=== PATIENT | female | born 1990 | race Caucasian/White ===

== ENCOUNTER 2022-02-20 01:42 | Emergency (ER) | payer OTHER ==
[~2022-02-20] VITALS: Ht 160 cm; Wt 54.4 kg
--- NOTE | 2022-02-20 01:45 | NUR ---
[id number]. L CHEST PAIN X 1.5 HRS. "FEELS LIKE SOMETHING IS STUCK" REPORTS BETTER WHEN IN STARTED. NON RADIAITING. 2 SPRAYS NITRO 325MG ASA WITH SOME RELIEF. PT A/OX4. TOLERATING R/A WELL WITH NO RESP DISTRESS. SAFETY MEASURES IN PLACE.
--- NOTE | 2022-02-20 02:05 | NUR ---
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
[2022-02-20 03:10] VITALS: BP 105/71
--- NOTE | 2022-02-20 03:11 | NUR ---
Patient discharged to home in stable condition. Written and verbal after care instructions given. Patient verbalizes understanding of instruction. IV removed. Catheter intact and site benign. Pressure and 4x4 applied to site. No bleeding noted.
== END 2022-02-20 03:15 | disposition home or self-care (01) ==
LOC: ER 01:49
DX: R07.89 Other chest pain (principal); F41.9 Anxiety disorder, unspecified
CPT/HCPCS: 71045-TC

== ENCOUNTER 2022-02-22 09:13 | Emergency (ER) | payer OTHER ==
[~2022-02-22] VITALS: Ht 162.6 cm; Wt 54.4 kg
[2022-02-22 09:33] VITALS: BP 106/77
--- NOTE | 2022-02-22 10:30 | NUR ---
CALLED TO ROOM-IN,NO ANSWER
--- NOTE | 2022-02-22 11:14 | NUR ---
CALLED TO ROOM-IN, PATIENT LEFT PER ADMITTING
== END 2022-02-22 11:21 | disposition left against medical advice (07) ==
LOC: ER 09:17
DX: Z53.21 Procedure and treatment not carried out due to patient leaving prior to being seen by health care provider (principal)